=== PATIENT | male | born 1955 | race African-American/Black ===

== ENCOUNTER 2021-09-21 09:26 | Inpatient (IN) | payer OTHER ==
[~2021-09-21] VITALS: Ht 182.9 cm; Wt 94.0 kg
[~2021-09-21 09:26] MED LIST: BP MED; CARI-277 PO; TRAM50TA2 PO
[2021-09-21 10:20] LABS: Eosinophils # (auto) 0 10 ^3/uL (0-0.8); Lymphocytes # (auto) 1.2 10 ^3/uL (0.4-5.4); Monocytes # (auto) 0.2 10 ^3/uL (0-1.3); Neutrophils # (auto) 2.7 10 ^3/uL (1.6-8.6); Nucleated Red Blood Cells % 0.2 %
[2021-09-21 10:24] LABS: Basophils # (auto) 0.1 10 ^3/uL (0-0.2); Eosinophils % (auto) 0.6 % (0.0-7.0); Hematocrit 39.8 % (41.0-53.0); Hemoglobin 13.5 g/dL (13.5-17.5); Lymphocytes % (auto) 29.2 % (10.0-50.0); Mean Corpuscular Hemoglobin 26.8 pg (28.0-32.0); Mean Corpuscular Volume 78.9 fL (80.0-100.0); Monocytes % (auto) 5.3 % (0.0-12.0); Neutrophils % (auto) 62.9 % (37.0-80.0); Red Blood Cells 5.04 10^6/uL (4.5-5.90); Red Cell Distribution Width 14.8 % (11.8-14.3); White Blood Cell 4.2 10^3/uL (4.4-10.8)
[2021-09-21 10:42] LABS: Albumin 3.6 g/dL (3.4-5.0); Calcium 8.5 mg/dL (8.5-10.1); Potassium 3.7 mmol/L (3.5-5.1)
[2021-09-21 10:46] LABS: BUN/Creatinine Ratio 8.2; Bilirubin, Total 0.5 mg/dL (0.2-1.0); Total Protein 7.2 g/dL (6.4-8.2)
[2021-09-21 11:18] LABS: Urine Amorphous Crystal FEW /hpf (None Seen); Urine Bacteria FEW /hpf (None Seen); Urine Blood TRACE /uL (Negative); Urine Specific Gravity 1.009 (1.001-1.035); Urine WBC 2 /hpf (0 - 3)
[2021-09-21] MEDS ORDERED: DEXTROSE (50%) 50ML SYRG IV PRN (14:45)
[2021-09-21 15:16] LABS: Cholesterol 132 mg/dL (< 200)
[2021-09-21 15:19] LABS: HDL Cholesterol 47 mg/dL (40-59); LDL Cholesterol 71 mg/dL (< 100); Triglycerides 151 mg/dL (< 150)
[2021-09-21] MEDS: ACCU-CHEK COMFORT CURVE STRIP VI SCH ×2 (17:00→22:30)
[2021-09-21] MEDS: InsuLIN REG 1unit/0.01ml Soln (100units/ml) SC SCH ×2 (17:00→22:31)
[2021-09-21 22:00] VITALS: BP 143/90
[2021-09-21] MEDS: ATORVASTATIN 20 MG TAB PO SCH (22:27)
[2021-09-21] MEDS: ENOXAPARIN SOD 100 MG/1 ML SYRINGE SC SCH (22:29)
[2021-09-21] MEDS: DRONEDARONE HCL 400 MG TAB PO SCH (22:38)
[2021-09-21 23:00] VITALS: BP 143/90
[2021-09-22] MEDS ORDERED: DIPH25CA29 PO (00:40)
[2021-09-22] MEDS ORDERED: CHOL20007 OR (00:40)
[2021-09-22] MEDS ORDERED: ATO40T PO (00:40)
[2021-09-22] MEDS ORDERED: APIX5TAB PO (00:40)
[2021-09-22] MEDS ORDERED: LISI40TA11 PO (00:40)
[2021-09-22] MEDS ORDERED: DRON400T PO (00:40)
[2021-09-22] MEDS ORDERED: AMLO-489 PO (00:40)
[2021-09-22 05:00] VITALS: BP 128/83
[2021-09-22] MEDS: InsuLIN REG 1unit/0.01ml Soln (100units/ml) SC SCH ×4 (07:00→22:18)
[2021-09-22] MEDS: ACCU-CHEK COMFORT CURVE STRIP VI SCH ×4 (07:06→22:15)
[2021-09-22 07:21] LABS: Basophils # (auto) 0 10 ^3/uL (0-0.2); Basophils % (auto) 0.6 % (0.0-2.0); Eosinophils # (auto) 0 10 ^3/uL (0-0.8); Hematocrit 39.3 % (41.0-53.0); Lymphocytes # (auto) 1.7 10 ^3/uL (0.4-5.4); Lymphocytes % (auto) 35.6 % (10.0-50.0); Mean Corpuscular Hemoglobin 27.1 pg (28.0-32.0); Mean Corpuscular Hgb Conc. 34.5 g/dL (32.0-36.0); Mean Corpuscular Volume 78.5 fL (80.0-100.0); Monocytes # (auto) 0.3 10 ^3/uL (0-1.3); Monocytes % (auto) 7.3 % (0.0-12.0); Neutrophils # (auto) 2.7 10 ^3/uL (1.6-8.6); Neutrophils % (auto) 55.5 % (37.0-80.0); Nucleated Red Blood Cells % 0.1 %; Red Cell Distribution Width 14.5 % (11.8-14.3); White Blood Cell 4.8 10^3/uL (4.4-10.8)
[2021-09-22 07:37] LABS: Albumin 3.5 g/dL (3.4-5.0); Calcium 9.2 mg/dL (8.5-10.1); Potassium 3.8 mmol/L (3.5-5.1)
[2021-09-22 07:39] LABS: Hemoglobin 13.6 g/dL (13.5-17.5)
[2021-09-22 07:42] LABS: BUN/Creatinine Ratio 12.9; Bilirubin, Total 0.5 mg/dL (0.2-1.0); Total Protein 7.2 g/dL (6.4-8.2)
[2021-09-22] MEDS ORDERED: ADENOSINE 77 MG in GIVE UN-DILUTED 0 ML IV ONE (08:45)
[2021-09-22] MEDS: amLODIPine BESYLATE 5 MG TAB PO SCH (09:39)
[2021-09-22] MEDS: ENOXAPARIN SOD 100 MG/1 ML SYRINGE SC SCH (09:40)
[2021-09-22] MEDS: LISINOPRIL 20 MG TAB PO SCH (09:40)
[2021-09-22] MEDS: DRONEDARONE HCL 400 MG TAB PO SCH ×2 (09:40→22:00)
[2021-09-22 13:00] VITALS: BP 146/87
[2021-09-22] MEDS ORDERED: NITROGLYCERIN 0.4 MG SL TAB SL PRN (14:45)
[2021-09-22] MEDS ORDERED: MORPHINE SULFATE INJ 2 MG/ml SYRG IV PRN (14:45)
[2021-09-22] MEDS ORDERED: ACETAMINOPHEN 325 MG TAB PO PRN (14:45)
[2021-09-22 17:00] VITALS: BP 151/86
[2021-09-22 22:00] VITALS: BP 143/88
[2021-09-22] MEDS: ATORVASTATIN 20 MG TAB PO SCH (22:16)
[2021-09-22] MEDS: APIXABAN 5 MG TAB PO SCH (22:17)
[2021-09-23 05:00] VITALS: BP 139/96
[2021-09-23] MEDS: ACCU-CHEK COMFORT CURVE STRIP VI SCH (06:14)
[2021-09-23] MEDS: InsuLIN REG 1unit/0.01ml Soln (100units/ml) SC SCH (06:15)
[2021-09-23 08:56] VITALS: BP 140/90
[2021-09-23] MEDS: APIXABAN 5 MG TAB PO SCH (09:52)
[2021-09-23] MEDS: amLODIPine BESYLATE 5 MG TAB PO SCH (09:52)
[2021-09-23] MEDS: DRONEDARONE HCL 400 MG TAB PO SCH (09:53)
[2021-09-23] MEDS: LISINOPRIL 20 MG TAB PO SCH (09:53)
[2021-09-23 11:53] VITALS: BP 140/90
[2021-09-23 12:44] VITALS: BP 158/99
== END 2021-09-23 13:10 | disposition home or self-care (01) | DRG 309 ==
LOC: ER 09:26 → TELE 14:35 → TELE-CENTR 21:50
PROVIDERS: ADMIT Registered Nurse; ATTEND Internal Medicine Nephrology
DX: R00.2 Palpitations (principal); I13.0 Hypertensive heart and chronic kidney disease with heart failure and stage 1 through stage 4 chronic kidney disease, or unspecified chronic kidney disease; I50.32 Chronic diastolic (congestive) heart failure; R47.01 Aphasia; R55 Syncope and collapse; R07.9 Chest pain, unspecified; D69.6 Thrombocytopenia, unspecified; E11.22 Type 2 diabetes mellitus with diabetic chronic kidney disease; E11.65 Type 2 diabetes mellitus with hyperglycemia; E66.9 Obesity, unspecified; Z20.822 Contact with and (suspected) exposure to COVID-19; I45.10 Unspecified right bundle-branch block; E78.5 Hyperlipidemia, unspecified; I48.0 Paroxysmal atrial fibrillation; F32.A Depression, unspecified; R31.9 Hematuria, unspecified; N18.31 Chronic kidney disease, stage 3a; N40.0 Benign prostatic hyperplasia without lower urinary tract symptoms; Z79.01 Long term (current) use of anticoagulants; Z79.84 Long term (current) use of oral hypoglycemic drugs; Z79.899 Other long term (current) drug therapy; Z82.3 Family history of stroke; Z86.73 Personal history of transient ischemic attack (TIA), and cerebral infarction without residual deficits; Z68.28 Body mass index [BMI] 28.0-28.9, adult
CPT/HCPCS: 36415; 70450; 70551; 71045; 78452; 80053; 80061; 81001; 82962; 83036; 83735; 84484; 85025; 93005; 93017; 93306; 93886; 95819; 96365; 96372; G0378; J0153; J1815